=== PATIENT | male | born 1975 | race Hispanic/Latino ===

== ENCOUNTER 2018-06-09 06:17 | Emergency (ER) | payer SELFPAY ==
[2018-06-09 06:39] VITALS: BP 128/83; PULSE 97; RESP 17; TEMP 98.3; O2SAT 96
--- NOTE | 2018-06-09 07:44 | ED PDOC ---
HPI: Dental Pain/Injury Time Seen by Provider: 06/09/18 07:00 Chief Complaint (Nursing): Dental Pain Chief Complaint (Provider): Dental Pain History Per: Patient History/Exam Limitations: no limitations Onset/Duration Of Symptoms: Days Current Symptoms Are (Timing): Still Present Additional Complaint(s): 43 year old male with a past medical history of bipolar disorder who is presenting to the ED for evaluation of dental pain onset 1 week ago. Patient states that right molar tooth rotted out 1 week ago, and reports that sharp edges are causing him pain when touched by his tongue. He reports that he is here from [place] visiting his parents and has a scheduled appointment in [place] for when he returns in 2 days. However, patient states that the pain was worsening which prompted this ED visit. He offers no other medical complaints at this time. PMD: none provided Past Medical History Reviewed: Historical Data, Nursing Documentation, Vital Signs Vital Signs: Last Vital Signs Temp 98.3 F 06/09/18 06:31 Pulse 97 H 06/09/18 06:31 Resp 17 06/09/18 06:31 BP 128/83 06/09/18 06:31 Pulse Ox 96 06/09/18 06:31 - Medical History PMH: Bipolar Disorder - Surgical History Surgical History: No Surg Hx - Family History Family History: States: Unknown Family Hx - Social History Current smoker - smoking cessation education provided: Yes Alcohol: None Drugs: Denies - Home Medications Home Medications: Ambulatory Orders Medication Instructions Recorded Amoxicillin 500 mg PO BID #20 tablet 06/09/18 Ibuprofen [Motrin Tab] 600 mg PO Q6 PRN #20 tab 06/09/18 - Allergies Allergies/Adverse Reactions: Allergies Allergy/AdvReac Type Severity Reaction Status Date / Time No Known Allergies Allergy Verified 06/09/18 06:39 Review of Systems ROS Statement: Except As Marked, All Systems Reviewed And Found Negative ENT: Positive for: Other (dental pain ) Physical Exam - Reviewed Nursing Documentation Reviewed: Yes Vital Signs Reviewed: Yes - Physical Exam Appears: Positive for: Well, Non-toxic, No Acute Distress Head Exam: Positive for: ATRAUMATIC, NORMAL INSPECTION, NORMOCEPHALIC Skin: Positive for: Normal Color, Warm, DRY Eye Exam: Positive for: Normal appearance ENT: Positive for: Other (decayed tooth, right lower molar: inside decayed with sharp sides ) Neck: Positive for: Normal, Painless ROM Extremity: Positive for: Normal ROM. Negative for: Deformity, Swelling Neurologic/Psych: Positive for: Alert, Oriented. Negative for: Motor/Sensory Deficits - ECG O2 Sat by Pulse Oximetry: 96 (RA) Pulse Ox Interpretation: Normal Medical Decision Making Medical Decision Making: Time: 7:40 Plan: --Percocet 1 tab PO --Motrin 600 mg PO --Dentistry referral Upon provider evaluation patient is medically stable, and requires no further treatment in the ED at this time. Patient will be discharged home with Rx for antibiotics and referral. pt states he is setting up appt at this time at [facility]. Counseling was provided and all questions were answered regarding diagnosis and need for follow up with dentist. There is agreement to discharge plan. Return if symptoms persist or worsen. Scribe Attestation: Documented by Betsy Whitlock, acting as a scribe for Lilian Christine MD. Provider Scribe Attestation: All medical record entries made by the Scribe were at my direction and personally dictated by me. I have reviewed the chart and agree that the record accurately reflects my personal performance of the history, physical exam, medical decision making, and the department course for this patient. I have also personally directed, reviewed, and agree with the discharge instructions and disposition. Disposition - Clinical Impression Clinical Impression: Dental caries, Broken tooth due to trauma without complication - Patient ED Disposition Is Patient to be Admitted: No Counseled Patient/Family Regarding: Diagnosis, Need For Followup - Disposition Disposition: Routine/Home Disposition Time: 07:40 Condition: IMPROVED Additional Instructions: follow up with your dentist at [facility] in 1-2 days return to the ED with any worsening or concerning symptoms Prescriptions: Amoxicillin 500 mg PO BID #20 tablet Ibuprofen [Motrin Tab] 600 mg PO Q6 PRN #20 tab PRN Reason: Pain, Moderate (4-7) Instructions: Fractured Tooth (DC), Dental Pain (DC) Forms: [facility] (Polish)
[2018-06-09] MEDS ORDERED: Oxycodone/Acetaminophen 5/325 mg Tab ONE (07:56)
[2018-06-09] MEDS: Oxycodone/Acetaminophen 5/325 mg Tab PO ONE (07:57)
== END 2018-06-09 08:04 | disposition home or self-care (01) ==
LOC: H.ER 06:17
DX: S02.5XXA Fracture of tooth (traumatic), initial encounter for closed fracture (principal); X58.XXXA Exposure to other specified factors, initial encounter; Y92.89 Other specified places as the place of occurrence of the external cause; F31.9 Bipolar disorder, unspecified; K02.9 Dental caries, unspecified; F17.200 Nicotine dependence, unspecified, uncomplicated